=== PATIENT | male | born 1980 | race Caucasian/White ===

== ENCOUNTER 2020-09-13 19:53 | Emergency (ER) | payer SELFPAY ==
[~2020-09-13] VITALS: Ht 175.3 cm; Wt 72.0 kg
[2020-09-13 20:08] VITALS: BP 125/75
[2020-09-13] MEDS ORDERED: NAPROXEN 500 MG TABLET PO STA (20:32)
[2020-09-13] MEDS ORDERED: AMOX875T PO (20:36)
[2020-09-13] MEDS ORDERED: DICL50TA2 PO (20:36)
--- NOTE | 2020-09-13 20:37 | PHYS DOC ---
Past Medical History Past Medical History: Other Additional Past Medical Histor: CHRONIC EAR ACHES Past Surgical History: No Surgical History Smoking Status: Current Every Day Smoker Alcohol Use: None General Adult EDM: Chief Complaint: EARACHE/EAR PAIN HPI: HPI: Patient is a 40 year old male who presents to the ED today complaining of 9 out of 10 sharp constant right ear pain, symptoms began a week ago. Patient denies anything specifically relieving the symptoms, he states he has tried hydrogen peroxide as well as some eardrops with no relief. Denies using antibiotics in the last 1 week. Denies any fever. Review of Systems: Review of Systems: Constitutional: Denies fever or chills. [] Eyes: Denies change in visual acuity. [] HENT: Reports right ear pain. Denies nasal congestion or sore throat. [] Respiratory: Denies cough or shortness of breath. [] Cardiovascular: Denies chest pain or edema. [] GI: Denies abdominal pain, nausea, vomiting, bloody stools or diarrhea. [] : Denies dysuria. [] Musculoskeletal: Denies back pain or joint pain. [] Integument: Denies rash. [] Neurologic: Denies headache, focal weakness or sensory changes. [] Psychiatric: Denies depression or anxiety. [] Heart Score: Risk Factors: Risk Factors: DM, Current or recent (<one month) smoker, HTN, HLP, family history of CAD, obesity. Risk Scores: Score 0 - 3: 2.5% MACE over next 6 weeks - Discharge Home Score 4 - 6: 20.3% MACE over next 6 weeks - Admit for Clinical Observation Score 7 - 10: 72.7% MACE over next 6 weeks - Early Invasive Strategies Allergies: Allergies: Allergies Coded Allergies Type Severity Reaction Last Updated Verified No Known Drug Allergies 09/13/20 No Physical Exam: PE: Constitutional: Well developed, well nourished, no acute distress, non-toxic appearance. [] HENT: Normocephalic, atraumatic, bilateral external ears normal, oropharynx moist, no oral exudates, nose normal. [] Right ear canal has some fluid likely hydrogen peroxide considering the bubbling. The eardrum can barely be seen but it appears erythematous. Hard to tell if the canal is infected considering the hydrogen peroxide in the ear canal Eyes: PERRLA, EOMI, conjunctiva normal, no discharge. [] Neck: Normal range of motion, no tenderness, supple, no stridor. [] Cardiovascular:Heart rate regular rhythm, no murmur [] Lungs & Thorax: Bilateral breath sounds clear to auscultation [] Abdomen: Bowel sounds normal, soft, no tenderness, no masses, no pulsatile masses. [] Skin: Warm, dry, no erythema, no rash. [] Back: No tenderness, no CVA tenderness. [] Extremities: No tenderness, no cyanosis, no clubbing, ROM intact, no edema. [] Neurologic: Alert and oriented X 3, normal motor function, normal sensory function, no focal deficits noted. [] Psychologic: Restless, anxious Current Patient Data: Vital Signs: Vital Signs Date Time Temp Pulse Resp B/P (MAP) Pulse Ox O2 Delivery O2 Flow Rate FiO2 09/13/20 20:08 98.1 16 125/75 (92) Room Air 98.1 EKG: EKG: [] Radiology/Procedures: Radiology/Procedures: [] Course & Med Decision Making: Course & Med Decision Making Pertinent Labs and Imaging studies reviewed. (See chart for details) This is a 40-year-old male patient presenting to the ED today with otitis media. Discharged on amoxicillin. Follow-up with ENT. Sha Disclaimer: Sha Disclaimer: This electronic medical record was generated, in whole or in part, using a voice recognition dictation system. Departure Departure Impression: Primary Impression: Otitis media, right Qualified Codes: H65.191 - Other acute nonsuppurative otitis media, right ear Disposition: DC HOME SELF CARE/HOMELESS Condition: STABLE Patient Instructions: Otitis Media, Adult Additional Instructions: You were seen for right ear infection. Take the prescribed antibiotics until completed. Follow-up with your doctor in 1 to 2 weeks Scripts Diclofenac Potassium (DICLOFENAC POTASSIUM) 50 Mg Tablet 1 TAB PO BID, #20 TAB Prov: JOSHACAROLINE RADIUS GRINDER 09/13/20 Amoxicillin (AMOXICILLIN) 875 Mg Tablet 1 TAB PO BID, #20 TAB Prov: MUTUNGA,CAROLINE RADIUS GRINDER 09/13/20 CAROLINE VALENCIA APRN Sep 13, 2020 20:37
[2020-09-13] MEDS ORDERED: AMOXICILLIN 250 MG CAPSULE. PO ONE (20:45)
[2020-09-13] MEDS ORDERED: HYDROcodone/APAP 5/325MG 1 TAB TABLET PO ONE (20:45)
== END 2020-09-13 20:53 | disposition home or self-care (01) ==
LOC: ER 19:53
DX: H65.191 Other acute nonsuppurative otitis media, right ear (principal); G89.29 Other chronic pain; F17.200 Nicotine dependence, unspecified, uncomplicated
CPT/HCPCS: 99284